=== PATIENT | male | born 2000 | race Caucasian/White ===

== ENCOUNTER 2022-08-04 19:52 | Emergency (ER) | payer OTHER ==
[2022-08-04] MEDS ORDERED: Lidocaine 1% 10 ML MDV INJECT ONE (20:45)
== END 2022-08-04 22:00 | disposition home or self-care (01) ==
LOC: JD.ED 19:52
DX: S61.421A Laceration with foreign body of right hand, initial encounter (principal); W26.8XXA Contact with other sharp object(s), not elsewhere classified, initial encounter
CPT/HCPCS: 12001; 99282; J3490